=== PATIENT | female | born 1980 | race Caucasian/White ===

== ENCOUNTER 2016-08-07 08:38 | Outpatient (CLI) | payer OTHER ==
[~2016-08-07] VITALS: Ht 167.6 cm; Wt 97.5 kg
[~2016-08-07 08:38] MED LIST: ALPR1TAB2 PO; CITA40TA19 PO; HYDR50TA76 PO; IBUP800T26 PO; LISI1TAB6 PO; POTA25TA PO; QUET50TA PO
--- OUTSIDE RECORDS SUMMARY | 2016-08-07 08:43 | XMS REPORT ---
Author Author YEHUDA DELAROSA Organization [employer] Address Unknown Phone Unavailable Care Team Providers Care Pharmacist'S Aide Name Role Phone YEHUDA DELAROSA CP Unavailable Allergies No Known Allergies Problems Problem Type Condition Code Onset Dates Condition Status Problem PTSD (post-traumatic stress disorder) F43.10 Active Problem Allergic rhinitis, unspecified allergic rhinitis type J30.9 Active Problem Piriformis syndrome of right side G57.01 Active Problem Anxiety disorder, unspecified F41.9 Active Problem Recurrent major depressive disorder, in partial remission F33.41 Active Problem 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 Problem Gynecologic exam normal Z01.419 Active Problem Stress incontinence in female N39.3 Active Problem Sleep disturbance G47.9 Active Problem Dysthymia F34.1 Active Problem Obesity E66.9 Active Problem Anxiety associated with depression F41.8 Active Problem Tobacco abuse Z72.0 Active Problem Non morbid obesity due to excess calories E66.09 Active Problem Other chronic pain G89.29 Active Problem Major depressive disorder, recurrent episode, moderate F33.1 Active Problem Pain in right hip M25.551 Active Problem Generalized anxiety disorder F41.1 Active Problem Hypertension, essential I10 Active Medications Medication Code System Code Instructions Start Date End Date Status Dosage Symbicort [facility] [address]-49 80-4.5 mcg/actuation Inhalation Twice a day Jun 29, 2014 2 puffs Results No Known Results Summary Purpose [employer] Submission
[2016-08-07] MEDS ORDERED: TRIAMCINOLONE ACET (KENALOG-40) 40 MG/ML 1 ML VIAL ONE (08:45)
[2016-08-07] MEDS ORDERED: BUPIVACAINE 0.25% 30 ML (SENSORCAINE) VIAL ONE (08:45)
[2016-08-07 09:03] VITALS: BP 133/99
[2016-08-07 09:49] VITALS: BP 135/92
--- NOTE | 2016-08-07 14:07 | Pain Medicine-Procedure ---
Procedure Pre-Op/Post-Op Diagnosis Diagnosis: disc disorder with radiculopathy, lumbar Indications for Operation Low back pain Attending Surgeon Kinza Procedure Date of Service: Aug 07, 2016 Procedure: Lumbar Epidural Steroid Injection at the L4-L5 level under Fluoroscopic Guidance Procedure: Patient was identified in the holding area. After risks, benefits, and alternatives were discussed with the patient, informed consent was obtained. Patient was brought to the fluoroscopy suite and placed prone on the procedure room table. A time out was performed. Vital signs were monitored throughout the procedure. The patients low back was prepped and draped in the usual sterile fashion. The patients skin was anesthetized using 2% Lidocaine. A Tuohy needle was inserted and advanced to the L4-L5 epidural space under fluoroscopic guidance using the loss of resistance technique and intermittent projection of fluoroscopy. There was no paresthesia with needle placement. The needle position was confirmed in both the AP and lateral view. After negative aspiration 2ml of contrast was injected under live fluoroscopy which showed good spread of the contrast in the epidural space at the appropriate level, there was no intravascular or subarachnoid spread. Again, after negative aspiration for heme or CSF, 2 ml of 0.25% Bupivicaine, 2ml of preservative free normal saline, and 80mg of Kenalog was injected. The needle was removed and a sterile bandage was placed and the patient was transferred to the recovery area in stable condition. After a brief period of observation, patient was discharged to home with no new neurological deficits and no apparent complications. Complications None DANIELA SANCHES MD Aug 07, 2016 2:07 pm
== END 2016-08-07 09:49 | disposition home or self-care (01) ==
LOC: CARD 08:38
PROVIDERS: ATTEND Pain Medicine Pain Medicine
DX: M51.16 Intervertebral disc disorders with radiculopathy, lumbar region (principal); M47.816 Spondylosis without myelopathy or radiculopathy, lumbar region; Z79.899 Other long term (current) drug therapy
CPT/HCPCS: 62323

== ENCOUNTER 2016-09-25 10:02 | Outpatient (CLI) | payer OTHER ==
[~2016-09-25] VITALS: Ht 167.6 cm; Wt 97.5 kg
[2016-09-25] MEDS ORDERED: TRIAMCINOLONE ACET (KENALOG-40) 40 MG/ML 1 ML VIAL ONE (10:12)
[2016-09-25] MEDS ORDERED: BUPIVACAINE 0.5% 30 ML (SENSORCAINE) VIAL ONE (10:12)
[2016-09-25] MEDS ORDERED: LIDOCAINE 1% INJ 20 ML (XYLOCAINE) VIAL ONE (10:12)
[2016-09-25 10:18] VITALS: BP 125/84
[2016-09-25 10:56] VITALS: BP 144/94
--- NOTE | 2016-09-25 12:17 | Pain Medicine-Procedure ---
Procedure Pre-Op/Post-Op Diagnosis Diagnosis: Spondylosis without myelopathy, lumbar Indications for Operation Low back pain Attending Surgeon Kinza Procedure Date of Service: Sep 25, 2016 PROCEDURE: Bilateral lumbar medial branch block at L3,L4, L5 and sacral ala under fluoroscopic guidance. PROCEDURE DETAILS: After obtaining an informed consent from the patient, the patient's chart was reviewed. The patient was brought to the procedure room and placed in a prone position. The back was prepped with antiseptic solution, and under fluoroscopic guidance the sacral ala was identified bilaterally. 0.5 cc of 1% Lidocaine to anesthetize the skin. Two 22 gauge 3.5 inch spinal needles were inserted under fluoroscopic guidance until it got in touch with the bone at the sacral ala bilaterally. Then under right oblique fluoroscopy, the junction of the superior articular process and transverse process on the right at L3, L4, and L5 was identified. 0.5 cc of 1% Lidocaine was used to anesthetize the skin. A 22 gauge 3.5 inch spinal needle was inserted through the skin under fluoroscopic guidance until it came in touch with the bone at the junction between the superior articular process and transverse process at each level. The exact steps were repeated for the left side. After needle aspiration,80 mg of kenalog total was injected in equal alliquots followed by 0.5 cc of 0.5% bupivacaine at each. The patient tolerated the procedure well. The needles were flushed and removed, and a Band-Aide was applied. Complications None DANIELA SANCHES MD Sep 25, 2016 12:17 pm
== END 2016-09-25 10:57 | disposition home or self-care (01) ==
LOC: CARD 10:02
PROVIDERS: ATTEND Pain Medicine Pain Medicine
DX: M47.816 Spondylosis without myelopathy or radiculopathy, lumbar region (principal); Z79.899 Other long term (current) drug therapy
CPT/HCPCS: 64493; 64494; 64495

== ENCOUNTER → 2016-12-10 | Outpatient (CLI) | payer OTHER ==
--- NOTE | 2016-12-10 14:12 | Diagnostic Imaging Report ---
Ultrasound of the neck. INDICATION: Lymphadenopathy. FINDINGS: There is a 1.7 x 1.2 x 1.9 cm lobulated circumscribed hyperechoic mass seen posterior to the left parotid gland. No internal vascularity is seen. There is prominent through-transmission. IMPRESSION: Indeterminate 1.9 cm hypoechoic lesion favored to be a complicated cyst with internal hemorrhage or debris rather than solid hypovascular mass. Further evaluation with MRI of the neck with and without contrast is suggested. Dictated by: Dictated on workstation # [id number]
== END ==
LOC: RAD 10:37
PROVIDERS: ATTEND Nurse Practitioner Family
DX: R59.0 Localized enlarged lymph nodes (principal)
CPT/HCPCS: 76536

== ENCOUNTER → 2016-12-29 | Outpatient (CLI) | payer OTHER ==
[~2016-12-29] MED LIST changes: +CATHETER FLUSH 10 ML SYR IV PRN; +IOHEXOL 350 MG/ML 100 ML (OMNIPAQUE 350) VIAL IV ONE; +NS 100 ML (IVPB) BAG IV ONE
--- NOTE | 2016-12-29 17:32 | Diagnostic Imaging Report ---
PROCEDURE: CT neck soft tissue with and without contrast. TECHNIQUE: Helically acquired axial images were obtained through the neck both before and after the administration of intravenous contrast. INDICATION: Left parotid mass. FINDINGS: There is a 1.6 x 1.3 x 2 cm circumscribed hypodense lesion within the posterior inferior aspect of the left parotid gland, partially exophytic. It is probably arising from the parotid gland itself rather than from the tissues posterior to it. It is abutting the retromandibular vein which runs medial to it. It demonstrates no contrast enhancement and density suggestive of predominantly cystic component with minimal increased over from simple fluid could relate to proteinaceous contents. No other masses seen in the left parotid space. Nonspecific level II cervical lymph nodes are seen on both sides up to 1 cm with no definite lymphadenopathy in the neck noted. The right parotid gland, the submandibular glands and the thyroid glands appear unremarkable. The unenhanced phase demonstrate no suspicious calcifications. The mucosal pharyngeal space appears unremarkable with symmetric appearance of the vocal cords. The visualized portions of the paranasal sinuses demonstrate mild mucosal thickening in the right maxillary sinus. The osseous structures appear grossly unremarkable. IMPRESSION: A 2 cm well defined nonenhancing hypodense mass within the posterior inferior aspect of the left parotid space, partially exophytic, is likely a complicated cystic lesion. Cystic neoplasm is not ruled out. Dictated by: Dictated on workstation # [id number]
== END ==
LOC: RAD 07:41
PROVIDERS: ATTEND Surgery
DX: R22.1 Localized swelling, mass and lump, neck (principal)
CPT/HCPCS: 70492

== ENCOUNTER 2018-07-06 09:37 | Emergency (ER) | payer SELFPAY ==
[~2018-07-06] VITALS: Ht 167.6 cm; Wt 89.8 kg
[~2018-07-06 09:37] MED LIST changes: -CATHETER FLUSH 10 ML SYR IV PRN; -IOHEXOL 350 MG/ML 100 ML (OMNIPAQUE 350) VIAL IV ONE; -NS 100 ML (IVPB) BAG IV ONE
[2018-07-06] MEDS ORDERED: [UNRECOGNIZED DRUG - OTHER] (10:08)
[2018-07-06] MEDS ORDERED: HYDROcodone/APAP 5 MG/325 MG (LORTAB) TAB PO STA (10:08)
[2018-07-06] MEDS ORDERED: IBUPROFEN 800 MG (MOTRIN) TAB PO STA (10:08)
--- NOTE | 2018-07-06 10:32 | ED Upper Extremity ---
General Chief Complaint: General Problems/Pain Stated Complaint: R ARM/HAND NUMBNESS Nursing Triage Note: AMB TO ROOM REPORTS HAS PAIN AND NUMBNESS IN R ARM FOR 1 WEEK. HAS APPOINTMENT IN [facility] ON JUL 13 FOR THIS. ALSO REPORT TRYING TO GET DISABILITY FOR YOSELIN HIP PAIN Nursing Sepsis Screen: No Definite Risk Source: patient Exam Limitations: no limitations History of Present Illness Date Seen by Provider: Jul 06, 2018 Time Seen by Provider: 10:06 Initial Comments Here with report of right hand numbness and pain in the wrist that radiates up the arm. This is been going on for couple weeks. She has intermittently tried ibuprofen. She has not had anything for the pain today. She presents to the emergency department today for evaluation as it was convenient because her father was also been seen in the hospital here today. She states her father wanted her checked for that. She does have appointment on 07/13/18 for this as well as other complaints including anxiety and chronic hip pain. Denies any injury. Onset: last week Severity: mild Pain/Injury Location: right wrist, right hand Method of Injury: unknown Modifying Factors: Improves With Immobilization; Worse With Movement Allergies and Home Medications Allergies Coded Allergies: Penicillins (Unverified Allergy, Mild, 03/04/09) cephalexin (Unverified Allergy, Mild, 03/04/09) Home Medications Alprazolam 1 Mg Tablet, 1 MG PO BID Prescribed by: SHWETA FRAUSTO on 06/01/14 1732 Citalopram Hydrobromide 40 Mg Tablet, 1 EACH PO DAILY, (Reported) Hydroxyzine Hcl 50 Mg Tablet, 1 EACH PO QID PRN PRN for ANXIETY Prescribed by: NANCY ARRIAZA on 06/05/14 1534 Ibuprofen 800 Mg Tablet, 800 MG PO q8h PRN for PAIN, (Reported) Lisinopril/Hydrochlorothiazide 1 Tab Tablet, 1 TAB PO DAILY, (Reported) Potassium Bicarbonate/Cit Ac 25 Meq Tablet.eff, 25 MEQ PO DAILY, (Reported) Quetiapine Fumarate 50 Mg Tablet, 12.5 MG PO QID, (Reported) Patient Home Medication List Home Medication List Reviewed: Yes Review of Systems Constitutional: see HPI; No chills, No fever Respiratory: no symptoms reported Cardiovascular: no symptoms reported Musculoskeletal: see HPI, joint pain, muscle pain Skin: no symptoms reported Past Vxhkfmm-Nghmks-Arivat Hx Past Med/Social Hx: Reviewed Nursing Past Med/Soc Hx Patient Social History Alcohol Use: Denies Use Recreational Drug Use: No Smoking Status: Current Everyday Smoker Recent Foreign Travel: No Contact w/Someone Who Travel: No Recent Infectious Disease Expo: No Immunizations Up To Date Date of Influenza Vaccine: May 02, 2014 Seasonal Allergies Seasonal Allergies: Yes Past Medical History Surgeries: Yes (TRACH, 2 DRAIN TUBES IN NECK BECAUSE OF ABCESS TOOTH) Section Respiratory: Yes Asthma, Chronic Bronchitis Cardiac: Yes Hypertension Neurological: Yes Headaches /Migraines Reproductive Disorders: No Gastrointestinal: Yes Gastroesophageal Reflux Musculoskeletal: Yes Arthritis Endocrine: No (HAS NOT BEEN DIAGNOSED WITH DIABETES) Cancer: No (CERVICAL DYSPLASIA) Anxiety, Depression Integumentary: No Blood Disorders: Yes (ANEMIC WHEN ) Adverse Reaction/Blood Tranf: No Family Medical History Reviewed Nursing Family Hx Physical Exam Vital Signs Vital Signs - First Documented 07/06/18 09:49 Temp 97.3 Pulse 76 Resp 18 B/P (MAP) 130/92 (105) Pulse Ox 100 O2 Delivery Room Air Capillary Refill : Less Than 3 Seconds Height, Weight, BMI Height: 5'6.00" Weight: 198lbs. 0.0oz. 89.250804tm; 34.7 BMI Method:Stated General Appearance: WD/WN, no apparent distress Cardiovascular: regular rate, rhythm, no murmur Respiratory: lungs clear, normal breath sounds Gastrointestinal: non tender, soft Shoulder: non-tender, no evidence of injury, normal ROM Wrist: Yes no evidence of injury, Yes limited ROM, Yes pain (increases with hyperextension to the right wrist) Hand: no evidence of injury, normal ROM, Right, soft tissue tenderness Neurologic/Psychiatric: alert, oriented x 3 Skin: normal color, warm/dry Progress/Results/Core Measures Results/Orders My Orders Orders - JUAN LUZ MD Hydrocodone/Apap 5/325 Tablet (Lortab 5 (07/06/18 10:08) Ibuprofen Tablet (Motrin Tablet) (07/06/18 10:08) Vital Signs/I&O 07/06/18 09:49 Temp 97.3 Pulse 76 Resp 18 B/P (MAP) 130/92 (105) Pulse Ox 100 O2 Delivery Room Air Blood Pressure Mean: 105 Progress Progress Note : Progress Note Seen and evaluated. Wrist splint to right wrist. Ibuprofen 800 mg by mouth. Hydrocodone 5/325 one tab by mouth. Discharged home with return precautions. Patient verbalize understanding instructions and agreement with plan. Departure Impression Primary Impression: Carpal tunnel syndrome of right wrist Disposition: HOME, SELF-CARE Condition: Stable Departure-Patient Inst. Decision time for Depature: 10:32 Referrals: XENA JOY DO (PCP) Primary Care Physician YEHUDA DELAROSA (Family) Primary Care Physician Patient Instructions: Carpal Tunnel Syndrome (DC) Add. Discharge Instructions: All discharge instructions reviewed with patient and/or family. Voiced understanding. Use wrist splint and all times for the next several days and then especially at night after that to help reduce symptoms. Follow up with your doctor next week as scheduled. You may take ibuprofen 600 mg every 8 hours as needed for pain. You may take Tylenol/acetaminophen 1000 mg every 8 hours as needed for pain. Return for worse pain, fever, vomiting, weakness, breathing problems or other concerns as needed. JUAN LUZ MD Jul 06, 2018 10:31
[2018-07-06 10:46] VITALS: BP 130/92
== END 2018-07-06 10:49 | disposition home or self-care (01) ==
LOC: EDUNIT# 09:37 → ER 09:38
DX: G56.01 Carpal tunnel syndrome, right upper limb (principal); F41.9 Anxiety disorder, unspecified; J44.9 Chronic obstructive pulmonary disease, unspecified; I10 Essential (primary) hypertension; G43.909 Migraine, unspecified, not intractable, without status migrainosus; K21.9 Gastro-esophageal reflux disease without esophagitis; F32.9 Major depressive disorder, single episode, unspecified; F17.200 Nicotine dependence, unspecified, uncomplicated; Z88.0 Allergy status to penicillin; Z88.1 Allergy status to other antibiotic agents
CPT/HCPCS: 99283